=== PATIENT | female | born 1985 | race African-American/Black ===

== ENCOUNTER 2020-05-19 13:44 | Emergency (ER) | payer MEDICAID, SELFPAY ==
[2020-05-19 14:16] VITALS: BP 130/74; PULSE 100; RESP 16; TEMP 36.6; O2SAT 100; BMI 23.2
--- NOTE | 2020-05-19 15:11 | CT_ITS ---
EXAMINATION: CT SOFT TISSUE NECK WITH CONTRAST CLINICAL INFORMATION: dental infection swelling to left side of neck COMPARISON: None TECHNIQUE: Following the intravenous administration of 60 mL of Omnipaque 350 intravenous contrast, helical imaging was performed in the axial plane with generation of coronal and sagittal reformatted images. This CT examination was performed using dose optimization techniques as appropriate, variously including the following: *Automated exposure control *Adjustment of mA and/or kV according to patient size (this includes techniques or standardized protocols for targeted exams where dose is matched to indication/reason for exam; i.e. extremities or head) *Use of iterative reconstruction technique DLP: 380 mGy-cm FINDINGS: No cervical adenopathy is identified. The parotid glands are homogeneous in attenuation. The submandibular glands are normal. No contour abnormality or pathologic enhancement is seen within the oral cavity or pharyngeal mucosal space. The laryngeal structures are normal. The parapharyngeal fat is preserved. The carotid sheath vasculature opacify normally. No extra mucosal soft tissue mass or fluid collection is seen. No retropharyngeal fluid collection is seen. The thyroid gland is normal. The superior mediastinum is unremarkable. The lung apices are clear. The mastoid air cells and visualized portions of the paranasal sinuses are well-aerated. The temporomandibular joints are normal. The imaged portions of the brain parenchyma are unremarkable. CT/CT soft tissue neck w con IMPRESSION: Unremarkable examination.
[2020-05-19] MEDS: oxyCODONE HCl Immed Release 5 MG TABLET PO (15:32)
[2020-05-19 15:53] LABS: MANUAL DIFF FLAG NO
[2020-05-19 15:57] LABS: Basophils Percent Auto 0.2 % (0-2); Eosinophils Absolute Auto 0.2 X10*3/uL (0.0-0.4); Eosinophils Percent Auto 2.1 % (0-4); Hematocrit 43.4 % (37-47); Hemoglobin 14.3 g/dl (12.0-16.0); Imm Gran Abs Auto 0.02 X10*3/uL (0.00-0.03); Imm Gran Pct Auto 0.2 % (0.0-0.4); Lymphocytes Absolute Auto 2.6 X10*3/uL (1.2-4.9); Lymphocytes Percent Auto 27.1 % (20-40); Mean Corpuscular HGB Conc 32.9 g/dl (31.0-35.0); Mean Corpuscular Hemoglobin 34.8 pg (27.0-33.0); Mean Corpuscular Volume 105.6 fL (80-98); Mean Platelet Volume 10.2 fL (9.4-12.3); Monocytes Absolute Auto 0.7 X10*3/uL (0.1-1.2); Monocytes Percent Auto 7.2 % (2-11); Neutrophils Absolute Auto 6.2 X10*3/uL (2.0-8.3); Neutrophils Percent Auto 63.2 % (45-73); Platelet Count 290 X10*3/uL (160-400); Red Blood Count 4.11 X10*6/uL (4.20-5.50); Red Cell Distribution Width 12.5 % (11.0-16.0); White Blood Count 9.8 X10*3/uL (4.8-10.8)
[2020-05-19 16:32] LABS: Anion Gap 12 (12-20); Blood Urea Nitrogen 16 mg/dL (9-16); Calcium 10.2 mg/dL (8.4-10.2); Carbon Dioxide 27 mmol/L (22-29); Chloride 102 mmol/L (96-108); Creatinine Clr Calc Pharmacy 79.8; Estimated Glomerular Filt Rate > 60; Glucose Random 102 mg/dL (60-115); Potassium 4.2 mmol/l (3.3-5.1); Sodium 137 mmol/L (135-145)
--- NOTE | 2020-05-19 16:33 | ED_ITS ---
HPI - Dental/Oral General Chief complaint: Dental/Oral Stated complaint: dental pain Time Seen by Provider: 05/19/20 14:05 Source: patient Mode of arrival: ambulatory Limitations: no limitations History of Present Illness HPI Narrative: 35yoF c PMHx of dental caries and poor dentition presenting to the ED with complaints of pain to the left lower canine/molars and left neck swelling for the past 2 weeks worse today. With associated ear pain/sore throat. She had followed up with a provider and they told her was possibly TMJs then she Reports that she followed up with a dentist and they told her that she needs all her teeth extracted and have dentures although they placed her on Augmentin and she reports she finished the entire course of the Augmentin and still has persistent symptoms no improvement. Waiting for 2nd opinion from a different dentist due to patient is hesitant to extract all of her teeth. Patient denies any fevers, gum swelling, tongue swelling, pain with swallowing, trauma or Denies any other symptoms complaints or concerns at this time. Relieving factors: nothing Exacerbating factors: chewing and swallowing Context: history of dental caries and poor dental care Treatment prior to arrival: none Related Data Previous Rx's Medication Instructions Recorded acetaminophen [Tylenol] 650 mg PO Q6H PRN #10 tab 05/19/20 clindamycin HCl 600 mg PO TID 10 Days #60 cap 05/19/20 ibuprofen 800 mg PO Q8H PRN #14 tab 05/19/20 oxycodone 5 mg PO BID PRN #10 tab 05/19/20 Allergies Allergy/AdvReac Type Severity Reaction Status Date / Time gabapentin [GABAPENTIN] Allergy Unknown ITCHING Unverified 01/10/20 17:22 pregabalin [From LYRICA] Allergy Unknown ITCHING Unverified 01/10/20 17:22 Review of Systems Review of Systems: Constitutional : No Fever, No Chills, No changes in PO intake, No difficulty speaking, no recent dental procedure, no heat or cold intolerance while eating, no recent face trauma, ENT/Mouth : + Dental pain, + Sore throt, + Jaw pain, + throat swelling, No swallowing difficulty, no change in voice, No facial swelling, no drooling, no trismus, no bleeding, no lacerations, no tongue swelling, gum swelling, Eyes: No Eye Pain, No periorbital Swelling Cardiovascular : No Chest Pain, No SOB Respiratory : No Cough, No Sputum, No Wheezing, No Smoke Exposure, No Dyspnea Gastrointestinal : No Nausea, No Vomiting, No Diarrhea Genitourinary : No Dysuria Musculoskeletal : No Myalgias Skin : No rash, no facial swelling or redness, Neuro : No Weakness, No Numbness, No Headache Yes all other systems are reviewed and are negative PMFSH Past Medical History Attestation statement: The following information was validated with the patient. Medical History Fibromyalgia Social History Social History Smoked in Last 30 Days: No Use of substances other than those prescribed or required for medical reasons: No Advance Directives: No Advance Directives Information Provided: No Physical Exam Vital Signs: Vital Signs: Last Vital Signs Temp 97.8 F 05/19/20 16:48 Pulse 65 05/19/20 16:48 Resp 14 05/19/20 16:48 BP 114/62 05/19/20 16:48 Pulse Ox 98 05/19/20 16:48 Body Mass Index 23.2 vital signs have been reviewed as normal and appeared to be correct. Blood pressure normal. Heart rate normal. Respiration rate normal. Temperature normal. Oxygen saturation normal. Appearance: Alert. Oriented X3. No acute distress. Head: Normal external exam. Normocephalic. Atraumatic. Eyes: PERRLA. EOMI. Conjunctiva and sclera normal. Eyelids normal. ENT: EAC normal. TM's Normal. Pharynx normal. Uvula midline. Moist mucous membranes. No trismus noted. No drooling noted. No muffled voice noted. Dentition: Patient with poor dentition throughout with multiple old fractured teeth with multiple dental caries. Gingival within normal limits. No fl uctuance. Not consistent with peritonsillar abscess. Not consistent with dental abscess. No salivary duct obstruction noted. Neck: Normal inspection. Neck supple. FROM. No adenopathy. Thyroid Normal. No meningeal signs. No neck mass noted. Trachea midline. CVS: Normal heart rate and rhythm. Heart sound normal. No murmurs noted. Pulses normal throughout. Respiratory: No respiratory distress. Painless inspiration. Breath sounds normal. No wheezes/rales/rhonchi noted. Chest nontender. No accessory muscle usage noted or decreased air movement noted. Back: Full range of motion noted. Skin: Skin warm and dry. Normal skin color. Normal skin turgor. No rashes/lesions/lacerations noted. Extremities:Extremities exhibit normal range of motion. Extremities nontender. Neuro: Oriented X 3. No motor deficit. No sensory deficit. Reflexes normal. Course Course Course Narrative: 15:10pm - 35yoF c PMHx of dental caries and poor dentition presenting to the ED with complaints of pain to the left lower canine/molars and left neck swelling for the past 2 weeks worse today. With associated ear pain/sore throat. - on exam patient has multiple dental caries, poor dentition and multiple old fractures noted. - patient is requesting labs and a CT scan of her teeth and her neck to make sure she does not have any other processes going on due to she reports when she went to the other provider at the urgent care and a dentist they did not do anything for her she reports but only gave her antibiotics and she has no symptomatic relief and symptoms are worse. - therefore at this time will obtain labs and on a CT scan of soft tissue neck with contrast which will involve the patient's teeth. Provide 5 mg of oxycodone and re-evaluate. Reevaluation(s) Reevaluation #1: - All labs WNL. Serum quant negative for . - awaiting CT scan of soft tissue neck will re-evaluate. Time: 16:47 Reevaluation #2: CT scan of soft tissue neck within normal limits no acute processes noted. Will DC home antibiotics and symptomatic treatment along with instructions follow-up with oral surgeon. Patient understands agrees the plan. Time: 17:55 [facility] - Dental/Oral Medical Records Attestation: I reviewed the patient's medical records. Lab Data Attestation: I reviewed the patient's lab results. Result diagrams: 05/19/20 15:26 05/19/20 15: Labs: Lab Results 05/19/20 05/19/20 05/19/20 Range/Units 15:26 15: 15: WBC 9.8 (4.8-10.8) X10*3/uL RBC 4.11 L (4.20-5.50) X10*6/uL Hgb 14.3 (12.0-16.0) g/dl Hct 43.4 (37-47) % MCV 105.6 H (80-98) fL MCH 34.8 H (27.0-33.0) pg MCHC 32.9 (31.0-35.0) g/dl RDW 12.5 (11.0-16.0) % Plt Count 290 (160-400) X10*3/uL MPV 10.2 (9.4-12.3) fL Immature Gran % (Auto) 0.2 (0.0-0.4) % Neut % (Auto) 63.2 (45-73) % Lymph % (Auto) 27.1 (20-40) % [place] % (Auto) 7.2 (2-11) % Eos % (Auto) 2.1 (0-4) % Baso % (Auto) 0.2 (0-2) % Lymph # (Auto) 2.6 (1.2-4.9) X10*3/uL [place] # (Auto) 0.7 (0.1-1.2) X10*3/uL Eos # (Auto) 0.2 (0.0-0.4) X10*3/uL Baso # (Auto) 0.0 (0.0-0.2) X10*3/uL Abs Immat Gran (auto) 0.02 (0.00-0.03) X10*3/uL Absolute Neuts (auto) 6.2 (2.0-8.3) X10*3/uL Absolute Nucleated RBC 0.000 (0.0-0.012) X10*3/uL Nucleated RBC % (auto) 0.0 (0.0-0.2) /100WBC Hold Blue Top SEE NOTE Sodium 137 (135-145) mmol/L Potassium 4.2 (3.3-5.1) mmol/l Chloride 102 (96-108) mmol/L Carbon Dioxide 27 (22-29) mmol/L Anion Gap 12 (12-20) BUN 16 (9-16) mg/dL Creatinine 0.77 (0.5-1.4) mg/dL Estim Creat Clear Calc 79.8 Estimated GFR > 60 Random Glucose 102 (60-115) mg/dL Calcium 10.2 (8.4-10.2) mg/dL Beta HCG, Quant < 2 mIU/mL Imaging Data CT scan of soft tissue neck: Attestation: I personally reviewed and interpreted this imaging study as follows: Radiologist's impression: FINDINGS: No cervical adenopathy is identified. The parotid glands are homogeneous in attenuation. The submandibular glands are normal. No contour abnormality or pathologic enhancement is seen within the oral cavity or pharyngeal mucosal space. The laryngeal structures are normal. The parapharyngeal fat is preserved. The carotid sheath vasculature opacify normally. No extra mucosal soft tissue mass or fluid collection is seen. No retropharyngeal fluid collection is seen. The thyroid gland is normal. The superior mediastinum is unremarkable. The lung apices are clear. The mastoid air cells and visualized portions of the paranasal sinuses are well-aerated. The temporomandibular joints are normal. The imaged portions of the brain parenchyma are unremarkable. CT/CT soft tissue neck w con IMPRESSION: Unremarkable examination. Discharge Plan Discharge Clinical Impression: Dental caries, Toothache, Dental infection Patient Disposition: Home, Self-Care Instructions: Toothache (ED) Prescriptions: New clindamycin HCl 300 mg capsule 600 mg PO TID 10 Days Qty: 60 RF: 0 acetaminophen [Tylenol] 325 mg tablet 650 mg PO Q6H PRN (Reason: fever or pain) Qty: 10 RF: 0 ibuprofen 800 mg tablet 800 mg PO Q8H PRN (Reason: pain) Qty: 14 RF: 0 oxycodone 5 mg tablet 5 mg PO BID PRN (Reason: pain) Qty: 10 RF: 0 Referrals: Audra Dillon MD [Primary Care Provider] - 2 days Stand Alone Forms: Work/School Release Print Language: Persian
[2020-05-19 16:41] LABS: HCG Quantitative < 2 mIU/mL
[2020-05-19 16:48] VITALS: BP 114/62; PULSE 65; RESP 14; TEMP 36.6; O2SAT 98
[2020-05-19] MEDS: iohexoL 350 MG/ML 100 ML INFUS..BTL IV (17:07)
== END 2020-05-19 18:30 | disposition home or self-care (01) ==
PROVIDERS: Physician Assistant Medical; Emergency Provider Internal Medicine; PCP Student in an Organized Health Care Education/Training Program
DX: K02.9 Dental caries, unspecified (principal); K04.7 Periapical abscess without sinus
CPT/HCPCS: 36415; 70491; 80048; 84702; 85025; 99284; Q9967

== ENCOUNTER 2021-10-12 15:09 | Emergency (ER) | payer MEDICAID, SELFPAY ==
--- NOTE | ~2021-10-12 | CT_ITS ---
EXAMINATION: CT BRAIN AND CT FACIAL BONES. CLINICAL INFORMATION: Fall, injury. COMPARISON: None TECHNIQUE: Axial 3 mm thin and reformatted 1.5 mm thin sagittal and coronal images of facial bones were obtained. Subsequently axial 5 mm thin and reformatted 2 mm thin sagittal and coronal images of brain were obtained without contrast. [facility] 939 FINDINGS: BRAIN: There is no acute intra-axial, extra-axial bleed, masses or midline shift. There is no acute infarction in evolution. There is no edema. The lateral ventricles are symmetrical in size and configuration without enlargement. Bone windows reveal no calvarial abnormality. There is no scalp soft tissue abnormality. Bilateral paranasal sinuses and mastoid air cells are well-aerated. FACIAL BONES: There is no visible acute maxillofacial, nasal fracture. Bilateral maxillary, ethmoid, sphenoid and frontal sinuses are and well aerated and clear. The the bony sinus rdz are intact. The lamina papyracea and cribriform plate is normal. The bony orbits, optic globe and the optic nerve appears normal. The maxillofacial soft tissues are normal. Bilateral parotid, submandibular glands are normal. There is a left central incisor periapical cyst no abnormality seen involving the maxilla, mandible. The TM joints are symmetrical. CT/CT facial bones wo con IMPRESSION: No acute intracranial process seen There is no maxillofacial, nasal or mandibular fracture. There is periapical cyst left central incisor. No maxillary or mandibular fractures seen either.
--- NOTE | ~2021-10-12 | CT_ITS ---
EXAMINATION: CT BRAIN AND CT FACIAL BONES. CLINICAL INFORMATION: Fall, injury. COMPARISON: None TECHNIQUE: Axial 3 mm thin and reformatted 1.5 mm thin sagittal and coronal images of facial bones were obtained. Subsequently axial 5 mm thin and reformatted 2 mm thin sagittal and coronal images of brain were obtained without contrast. [facility] 939 FINDINGS: BRAIN: There is no acute intra-axial, extra-axial bleed, masses or midline shift. There is no acute infarction in evolution. There is no edema. The lateral ventricles are symmetrical in size and configuration without enlargement. Bone windows reveal no calvarial abnormality. There is no scalp soft tissue abnormality. Bilateral paranasal sinuses and mastoid air cells are well-aerated. FACIAL BONES: There is no visible acute maxillofacial, nasal fracture. Bilateral maxillary, ethmoid, sphenoid and frontal sinuses are and well aerated and clear. The the bony sinus rdz are intact. The lamina papyracea and cribriform plate is normal. The bony orbits, optic globe and the optic nerve appears normal. The maxillofacial soft tissues are normal. Bilateral parotid, submandibular glands are normal. There is a left central incisor periapical cyst no abnormality seen involving the maxilla, mandible. The TM joints are symmetrical. CT/CT head/brain wo con IMPRESSION: No acute intracranial process seen There is no maxillofacial, nasal or mandibular fracture. There is periapical cyst left central incisor. No maxillary or mandibular fractures seen either.
--- NOTE | ~2021-10-12 | XR_ITS ---
EXAMINATION: XR KNEE, RIGHT CLINICAL INFORMATION: Pain COMPARISON: None TECHNIQUE: Four views of the right knee. FINDINGS: Bones and soft tissues are normal. No fracture or joint effusion. Alignment is anatomic. Joint spaces are well maintained. No abnormal soft tissue calcification. XR/XR knee RT 2V IMPRESSION: No significant osseous changes to explain patient's pain symptoms.
[2021-10-12 15:39] VITALS: BP 126/78; PULSE 94; RESP 20; TEMP 37.2; O2SAT 100; BMI 19.0
--- NOTE | 2021-10-12 16:48 | ED.GENADULT ---
HPI - General Adult General Chief complaint: Fall Stated complaint: Hit Face on Pavement 10/10/21 Time Seen by Provider: 10/12/21 15:44 Source: patient Mode of arrival: ambulatory Limitations: no limitations History of Present Illness HPI narrative: Patient is a 36 year old female presenting to the emergency department today after a trip and fall. Patient states that 2 nights ago, she tripped and fell on an uneven side walk. Patient denies any loss of consciousness with the incident. Patient states that she chipped two of her teeth and hurt her right knee. Patient states that she has an appointment with her dentist later this week and is not sure when her last tetanus shot was. Patient denies any dizziness, lightheadedness, abdominal pain, nausea, vomiting, fever, chills, blurry vision, double vision, loss of vision, chest pain, difficulty breathing, shortness of breath, back pain, night sweats, pain with urination, increased urinary frequency, increased urinary urgency, blood in her urine or stool, syncope or a near syncopal episode, bowel incontinence, bladder incontinence, bowel retention, bladder retention, or any other complaints at this time. Onset (ago): day(s) (2) Severity: mild Severity scale (1-10): 3 Quality: aching and dull Pain Consistency: constant Relieving factors: none Exacerbating factors: none Associated symptoms: denies other symptoms Treatments prior to arrival: none Related Data Previous Rx's Medication Instructions Recorded acetaminophen 325 mg tablet 650 mg PO Q6H PRN fever or pain 05/19/20 (Tylenol) #10 tabs clindamycin HCl 300 mg capsule 600 mg PO TID dental infection 10 05/19/20 days #60 caps ibuprofen 800 mg tablet 800 mg PO Q8H PRN pain #14 tabs 05/19/20 oxycodone 5 mg tablet 5 mg PO BID PRN pain #10 tabs 05/19/20 cephalexin 500 mg capsule 500 mg PO Q6H 7 days #28 caps 10/12/21 Allergies Allergy/AdvReac Type Severity Reaction Status Date / Time gabapentin [GABAPENTIN] Allergy Unknown ITCHING Unverified 01/10/20 17:22 pregabalin [From LYRICA] Allergy Unknown ITCHING Unverified 01/10/20 17:22 Review of Systems Constitutional: Constitutional: Reports no additional constitutional complaints, Denies chills, Denies fever(s) and Denies night sweats Eyes: Eyes: Reports no additional eye complaints, Denies blurry vision, Denies change in vision, Denies diplopia, Denies eye discharge, Denies loss of vision and Denies eye pain ENT: Denies dizziness Comments: chipped teeth, lip swelling Cardiovascular: Cardiovascular: Reports no additional cardiovascular complaints, Denies chest pain, Denies lightheadedness, Denies Loss of Consciousness and Denies dyspnea Respiratory: Respiratory: Reports no additional respiratory complaints and Denies dyspnea Gastrointestinal: Gastrointestinal: Reports no additional gastrointestinal complaints, Denies abdominal pain, Denies melena, Denies hematochezia, Denies change in bowel habits and Denies change in stool character Genitourinary: Genitourinary: Denies hematuria, Denies urinary frequency, Denies dysuria, Denies urinary incontinence, Denies urinary hesitancy and Denies urinary urgency Musculoskeletal: Musculoskeletal: Reports no additional musculoskeletal complaints, Denies numbness and Denies tingling Comments: right knee pain Neurologic: Denies dizziness, Denies loss of vision, Denies numbness and Denies tingling Psychiatric: Psychiatric: Reports no additional psychiatric complaints Endocrine: Endocrine: Reports no additional endocrine complaints Hematologic/Lymphatic: Hematologic/Lymphatic: Reports no additional hematologic/lymphatic complaints Allergic/Immunologic: Allergic/Immunologic: Reports no additional allergic/immunologic complaints [facility] Past Medical History Attestation statement: The following information was validated with the patient. Source: old records reviewed Social History Social History Advance Directives: No Advance Directives Information Provided: No Physical Exam ED Vital Signs: Vital Signs - 24 hr 10/12/21 15:39 Temperature 98.9 F Pulse Rate 94 Respiratory Rate 20 Blood Pressure 126/78 Pulse Oximetry 100 Oxygen Delivery Method Room Air BMI result Body Mass Index 19.0 Const General: cooperative, no acute distress, alert and awake Nutritional Appearance: well nourished Orientation/consciousness: patient oriented x3 Limitations: no limitations HENMT Head: Yes normal to inspection and Yes atraumatic Ears: hearing grossly normal bilaterally and external ears normal General nose exam: Normal external nose present, no nasal discharge noted and no epistaxis Face and sinus: Yes normal facial exam, No abrasion and No laceration Mouth: Normal oral and palatal mucosa present, no drooling and no muffled voice Teeth and gingiva: other (chipped 7th and 8th tooth, no loose pieces, teeth are secure) Eyes General: appearance normal, both eyes and all related structures Periorbital: periorbital findings normal Eyelids: Yes eyelids normal Conjunctivae: conjunctivae normal Pupils: Equal, round and reactive pupils present EOM: EOMs intact bilaterally Neck Neck: Yes normal visual inspection, Yes full ROM and Yes no lymphadenopathy Chest Chest palpation & inspection: normal inspection of the chest Resp Effort & Inspection: normal respiratory effort and able to speak in complete sentences Auscultation: clear to auscultation bilaterally Cardio Rate: regular rate Rhythm: regular rhythm GI Inspection: Yes normal to inspection Skin Other: abrasions to the right side of the face and the right knee, no active bleeding, no gaping areas Neuro General: patient oriented x3 and moves all extremities Cranial nerves: Yes Equal, round and reactive pupils present Cognition (Neuro): normal cognition Motor exam (neuro): 5/5 motor strength present throughout Sensory Exam: Normal double simultaneous stimulation for sensation Coordination: [id number] test normal Extrem General: Yes normal to inspection, Yes full ROM and Yes capillary refill normal Psych Appearance: grossly normal Mental Status: mental status grossly normal Affect: normal affect Attitude: cooperative Thought process: Normal thought process present Thought content: Normal thought content present Insight: Good insight present (Psych) Medical Decision Making MDM Narrative Medical decision making narrative: Patient is a 36 year old female presenting to the emergency department today after a trip and fall. Patient's physical exam was as noted earlier in this chart. Patient's right knee x-ray, CT head, and CT facial showed no acute process. I explained my physical exam findings as well as all test results to the patient. I answered all questions asked by the patient. Patient was brought up to date on her tetanus. I stressed the importance of the patient taking her medication as prescribed. I stressed the importance of the patient following up with her primary care provider and dentist as scheduled. I stressed the importance of the patient returning to the emergency department immediately if her symptoms were to worsen or if she were to develop any dizziness, shortness of breath, difficulty breathing, chest pain, blurry vision, loss of vision, nausea, vomiting, abdominal pain, fever, chills, back pain, or any other complaints. Patient verbalized agreement and understanding with this treatment plan and discharge. Differential Diagnosis Differential Diagnosis: fall, abrasion Medical Records Medical records reviewed: Yes I reviewed the patient's medical records. Imaging Data Right knee x-ray: Attestation: I personally reviewed and interpreted this imaging study as follows: My impression: No acute process. Radiologist's impression: EXAMINATION: XR KNEE, RIGHT? CLINICAL INFORMATION: Pain? COMPARISON: None? TECHNIQUE: Four views of the right knee. FINDINGS: Bones and soft tissues are normal. No fracture or joint effusion. Alignment is anatomic. Joint spaces are well maintained. No abnormal soft tissue calcification.? XR/XR knee RT 2V IMPRESSION: No significant osseous changes to explain patient's pain symptoms. Dictated By: Jose Polanco MD Signed By: Electronically signed by Jose Polanco MD 10/12/[address] facial bones: Attestation: I personally reviewed and interpreted this imaging study as follows: My impression: No acute process. Radiologist's impression: EXAMINATION: CT BRAIN AND CT FACIAL BONES. CLINICAL INFORMATION: Fall, injury.? COMPARISON: None? TECHNIQUE: Axial 3 mm thin and reformatted 1.5 mm thin sagittal and coronal images of facial bones were obtained. Subsequently axial 5 mm thin and reformatted 2 mm thin sagittal and coronal images of brain were obtained without contrast. DLP [id number]? FINDINGS: BRAIN: There is no acute intra-axial, extra-axial bleed, masses or midline shift. There is no acute infarction in evolution. There is no edema. The lateral ventricles are symmetrical in size and configuration without enlargement. Bone windows reveal no calvarial abnormality. There is no scalp soft tissue abnormality. Bilateral paranasal sinuses and mastoid air cells are well-aerated. FACIAL BONES: There is no visible acute maxillofacial, nasal fracture. Bilateral maxillary, ethmoid, sphenoid and frontal sinuses are and well aerated and clear. The the bony sinus rdz are intact. The lamina papyracea and cribriform plate is normal. The bony orbits, optic globe and the optic nerve appears normal. The maxillofacial soft tissues are normal. Bilateral parotid, submandibular glands are normal. There is a left central incisor periapical cyst no abnormality seen involving the maxilla, mandible. The TM joints are symmetrical. CT/CT facial bones wo con IMPRESSION: No acute intracranial process seen ? There is no maxillofacial, nasal or mandibular fracture. ? There is periapical cyst left central incisor. No maxillary or mandibular fractures seen either.? Dictated By: Saul Romo MD Signed By: Electronically signed by Saul Romo MD 10/12/21 2220 Discharge Plan Discharge Clinical Impression: Fall Patient Disposition: Home, Self-Care Instructions: Fall Prevention (ED) Additional Instructions: Follow up with your primary care provider and your dentist as scheduled. Return to the emergency department immediately if your symptoms worsen or if you develop any dizziness, shortness of breath, difficulty breathing, chest pain, blurry vision, loss of vision, nausea, vomiting, abdominal pain, fever, chills, back pain, or any other complaints. Prescriptions: New cephalexin 500 mg capsule 500 mg PO Q6H 7 Days Qty: 28 0RF No Action clindamycin HCl 300 mg capsule 600 mg PO TID 10 Days Qty: 60 0RF acetaminophen [Tylenol] 325 mg tablet 650 mg PO Q6H PRN (Reason: fever or pain) Qty: 10 0RF ibuprofen 800 mg tablet 800 mg PO Q8H PRN (Reason: pain) Qty: 14 0RF oxycodone 5 mg tablet 5 mg PO BID PRN (Reason: pain) Qty: 10 0RF Referrals: Audra Dillon MD [Primary Care Provider] - Stand Alone Forms: Work/School Release Print Language: Polish
[2021-10-12] MEDS: Diphth,Pertus(ACell),Tet Adult 0.5 ML SYRINGE IM (18:51)
[2021-10-12 19:32] VITALS: BP 122/67; PULSE 82; RESP 16; O2SAT 97
== END 2021-10-12 19:36 | disposition home or self-care (01) ==
PROVIDERS: Emergency Provider Emergency Medicine; PCP Student in an Organized Health Care Education/Training Program
DX: S89.91XA Unspecified injury of right lower leg, initial encounter (principal); S09.90XA Unspecified injury of head, initial encounter; S00.81XA Abrasion of other part of head, initial encounter; G44.309 Post-traumatic headache, unspecified, not intractable; W01.0XXA Fall on same level from slipping, tripping and stumbling without subsequent striking against object, initial encounter; Y93.9 Activity, unspecified; Y92.9 Unspecified place or not applicable; Y99.9 Unspecified external cause status; Z79.899 Other long term (current) drug therapy
CPT/HCPCS: 70450; 70486; 73560; 90471; 90715; 99283

== ENCOUNTER 2021-10-16 09:50 | Outpatient (REF) | payer MEDICAID, SELFPAY ==
--- NOTE | ~2021-10-16 | XR_ITS ---
EXAMINATION: XR HIP, RIGHT CLINICAL INFORMATION: Right hip pain. COMPARISON: None TECHNIQUE: Two views of the right hip. FINDINGS: Bones and soft tissues are normal. No fracture. Alignment is anatomic. Hip joint space is maintained. XR/XR hip RT min 2V IMPRESSION: Unremarkable right hip exam.
== END 2021-10-16 09:51 | disposition home or self-care (01) ==
LOC: HO.XRAY 09:50
PROVIDERS: PCP Student in an Organized Health Care Education/Training Program; Visit Provider Student in an Organized Health Care Education/Training Program
DX: M25.551 Pain in right hip (principal)
CPT/HCPCS: 73502

== ENCOUNTER 2023-03-03 10:20 | Outpatient (REF) | payer MEDICAID, SELFPAY ==
[2023-03-03 14:28] LABS: MANUAL DIFF FLAG NO
[2023-03-03 14:33] LABS: Basophils Percent Auto 0.4 % (0-2); Eosinophils Percent Auto 0.2 % (0-4); Hematocrit 36.3 % (37.0-47.0); Hemoglobin 12.6 g/dl (12.0-16.0); Imm Gran Abs Auto 0.01 X10*3/uL (0.00-0.03); Imm Gran Pct Auto 0.2 % (0.0-0.4); Lymphocytes Absolute Auto 1.3 X10*3/uL (1.2-4.9); Lymphocytes Percent Auto 28.4 % (20-40); Mean Corpuscular HGB Conc 34.7 g/dl (31.0-35.0); Mean Corpuscular Hemoglobin 36.3 pg (27.0-33.0); Mean Corpuscular Volume 104.6 fL (80.0-98.0); Mean Platelet Volume 11.3 fL (9.4-12.3); Monocytes Absolute Auto 0.4 X10*3/uL (0.1-1.2); Monocytes Percent Auto 8.1 % (2-11); Neutrophils Absolute Auto 2.9 x10*3/uL (2.0-8.3); Neutrophils Percent Auto 62.7 % (45-73); Platelet Count 339 X10*3/uL (160-400); Red Blood Count 3.47 X10*6/uL (4.20-5.50); Red Cell Distribution Width 14.2 % (11.0-16.0); White Blood Count 4.7 X10*3/uL (4.8-10.8)
[2023-03-03 14:42] LABS: Rheumatoid Factor < 13.0 IU/mL (<15.0)
[2023-03-03 14:47] LABS: C Reactive Protein < 0.10 mg/dL (< or = 0.50)
[2023-03-03 15:04] LABS: Thyroid Stimulating Hormone 1.56 uIU/mL (0.32-4.0)
[2023-03-04 08:32] LABS: ~HepC Num1 0.06 S/CO (0.00-0.79); ~Hepatitis C Antibody Nonreactive (Nonreactive)
[2023-03-07 12:08] LABS: Anti Nuclear Antibody Screen NEGATIVE (NEGATIVE)
[2023-03-07 17:23] LABS: HIV RNA PCR Qn Copies Not Detected Copies/mL; HIV RNA PCR Qn Log Copies Not Detected Log cps/mL
== END 2023-03-03 10:21 | disposition home or self-care (01) ==
LOC: HO.CHCLDS 10:20
PROVIDERS: Visit Provider Student in an Organized Health Care Education/Training Program
DX: K13.79 Other lesions of oral mucosa (principal)
CPT/HCPCS: 36415; 84443; 85025; 86038; 86140; 86431; 86803; 87536; 87900

== ENCOUNTER 2024-04-12 16:40 | Outpatient (REF) | payer MEDICAID, SELFPAY ==
--- NOTE | ~2024-04-12 | XR_ITS ---
CLINICAL HISTORY: chest wall pain 2 view chest x-ray. Comparison: CR - CHEST 2 VIEWS [id number] - 10/20/16 10:48 EDT Findings: The lungs are adequately expanded. No focal confluent opacity. No effusion or pneumothorax. Cardiac and mediastinal contours are within normal limits. No acute osseous abnormality Impression: No acute process. This document has been electronically signed by: Joey Vidal MD on 04/12/2024 18:09:40
[2024-04-12 16:52] LABS: MANUAL DIFF FLAG NO
[2024-04-12 17:24] LABS: Eosinophils Percent Auto 0.4 % (0-4); Hematocrit 38.8 % (37.0-47.0); Hemoglobin 13.5 g/dl (12.0-16.0); Imm Gran Abs Auto 0.01 X10*3/uL (0.00-0.03); Imm Gran Pct Auto 0.2 % (0.0-0.4); Lymphocytes Absolute Auto 1.6 X10*3/uL (1.2-4.9); Lymphocytes Percent Auto 30.1 % (20-40); Mean Corpuscular HGB Conc 34.8 g/dl (31.0-35.0); Mean Corpuscular Hemoglobin 35.9 pg (27.0-33.0); Mean Corpuscular Volume 103.2 fL (80.0-98.0); Mean Platelet Volume 11.3 fL (9.4-12.3); Monocytes Absolute Auto 0.6 X10*3/uL (0.1-1.2); Monocytes Percent Auto 10.4 % (2-11); Neutrophils Absolute Auto 3.2 x10*3/uL (2.0-8.3); Neutrophils Percent Auto 58.9 % (45-73); Platelet Count 211 X10*3/uL (160-400); Red Blood Count 3.76 X10*6/uL (4.20-5.50); Red Cell Distribution Width 12.9 % (11.0-16.0); White Blood Count 5.4 X10*3/uL (4.8-10.8)
[2024-04-12 18:25] LABS: Erythrocyte Sedimentation Rate 5 MM/HR (0-20)
== END 2024-04-12 16:41 | disposition home or self-care (01) ==
LOC: HO.XRAY 16:40
PROVIDERS: PCP Student in an Organized Health Care Education/Training Program; Visit Provider Internal Medicine
DX: R07.89 Other chest pain (principal)
CPT/HCPCS: 36415; 71046; 85025; 85652

== ENCOUNTER → 2024-04-12 16:53 | Outpatient (BNV) | payer MEDICAID, SELFPAY | PROVIDERS: PCP Student in an Organized Health Care Education/Training Program; Visit Provider Radiology Vascular & Interventional Radiology | DX: R07.89 Other chest pain (principal) | CPT/HCPCS: 71046 ==

== ENCOUNTER 2024-04-19 10:21 | Outpatient (REF) | payer MEDICAID, SELFPAY ==
[2024-04-19 15:31] LABS: Folate < 2.2 ng/mL (> or = 4.0); Vitamin B12 160 pg/mL (200-900)
== END 2024-04-19 10:22 | disposition home or self-care (01) ==
LOC: HO.CHCLDS 10:21
PROVIDERS: Visit Provider Internal Medicine
DX: D75.89 Other specified diseases of blood and blood-forming organs (principal)
CPT/HCPCS: 36415; 82607; 82746